=== PATIENT | male | born 1985 | race Caucasian/White ===

== ENCOUNTER 2022-04-17 18:55 | Emergency (ER) | payer OTHER, SELFPAY ==
--- NOTE | 2022-04-17 19:15 | CT_ITS ---
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 3D rendering (Not supervised by radiologist): MIP and/or 3D reconstructed images were created by the technologist. Radiation optimization: All CT scans at this facility use at least one of these dose optimization techniques: automated exposure control; mA and/or kV adjustment per patient size (includes targeted exams where dose is matched to clinical indication); or iterative reconstruction. Contrast material: ISOVUE; Contrast volume: 100 ml; Contrast route: INTRAVENOUS (IV); COMPARISON: No relevant prior studies available. FINDINGS: Tubes, catheters and devices: Surgical clips in the midline consistent with recent surgery Aorta: No aortic aneurysm. No aortic dissection. Celiac trunk and mesenteric arteries: No occlusion or significant stenosis. Renal arteries: No occlusion or significant stenosis. Right iliac arteries: No occlusion or significant stenosis. Left iliac arteries: No occlusion or significant stenosis. Liver: No mass. Gallbladder and bile ducts: Unremarkable. No calcified stones. No ductal dilation. Pancreas: Unremarkable. No mass. No ductal dilation. Spleen: Unremarkable. No splenomegaly. Adrenal glands: Unremarkable. No mass. Kidneys and ureters: Unremarkable. No solid mass. No hydronephrosis. Stomach and bowel: No obstruction. No mucosal thickening. Appendix: No evidence of appendicitis. Intraperitoneal space: Free air in the upper abdomen consistent with recent surgery. 7.5 x 3.3 cm free fluid in the posterior pelvis . Lymph nodes: Unremarkable. No enlarged lymph nodes. Urinary bladder: Unremarkable. No mass. Reproductive: Unremarkable as visualized. Bones/joints: No acute fracture. Soft tissues: Unremarkable. IMPRESSION: No obstruction 7.5 x 3.3 cm free fluid in the posterior pelvis .
--- NOTE | 2022-04-17 19:15 | CT_ITS ---
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 3D rendering (Not supervised by radiologist): MIP and/or 3D reconstructed images were created by the technologist. Radiation optimization: All CT scans at this facility use at least one of these dose optimization techniques: automated exposure control; mA and/or kV adjustment per patient size (includes targeted exams where dose is matched to clinical indication); or iterative reconstruction. Contrast material: ISOVUE; Contrast volume: 75 ml; Contrast route: INTRAVENOUS (IV); COMPARISON: No relevant prior studies available. FINDINGS: Pulmonary arteries: No evidence of pulmonary embolus to the segmental level. Aorta: No aneurysm of the aorta. No dissection of the aorta. Lungs: Unremarkable. No consolidation. No masses. Pleural spaces: Unremarkable. No pneumothorax. No pleural effusion. Heart: Unremarkable. No cardiomegaly. No pericardial effusion. Lymph nodes: Unremarkable. No enlarged lymph nodes. Intraperitoneal space: Free air anterior to the heart. Series 5, image 105 and free air in the upper abdomen consistent with recent surgery.. Bones/joints: Unremarkable. No acute fracture. Soft tissues: Unremarkable. IMPRESSION: 1. No evidence of pulmonary embolus to the segmental level. 2. No aneurysm of the aorta. 3. No dissection of the aorta. 4. Free air anterior to the heart. Series 5, image 105 and free air in the upper abdomen consistent with recent surgery..
[2022-04-17 19:18] VITALS: BP 151/82; PULSE 112; RESP 15; TEMP 37.1; O2SAT 98; BMI 23.7
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
--- NOTE | 2022-04-17 19:35 | PC.NURSE ---
LAB NOTIFIED OF TYPE AND SCREEN
[2022-04-17 19:37] LABS: Coronavirus 19, PCR Not Detected (NotDetected); Influenza A, PCR Not Detected (NotDetected); Influenza B, PCR Not Detected (NotDetected)
[2022-04-17 19:38] LABS: Chloride 106 mmol/L (98-107); Sodium 139 mmol/L (136-145)
[2022-04-17 19:41] LABS: Alanine Aminotransferase 58 U/L (12-78); Alkaline Phosphatase 109 U/L (38-126); Aspartate Amino Transferase 59 U/L (17-59); Bilirubin,Total 0.2 mg/dl (0.2-1.3); Blood Urea Nitrogen 7 mg/dl (9-20); Calcium 8.6 mg/dl (8.4-10.2); Carbon Dioxide 26 mmol/L (22.0-30.0); Creatinine Clearance Estimated 197 mL/min (50-200); Estimated Glomerular Filt Rate 152 ml/min (>60); GFR (African American) 184 ML/MIN (>60); Glucose 113 mg/dl (74-100); Lipase 138 U/L (23-300)
[2022-04-17 19:42] LABS: Albumin/Globulin Ratio 1.3 (1.1-1.8); Globulin 3.1 g/dL (1.3-3.2); Total Protein,Serum 7.1 g/dl (6.3-8.2)
--- NOTE | 2022-04-17 19:55 | PC.NURSE ---
PT GONE TO CT VIA W/C
[2022-04-17 20:03] LABS: Basophils # 0.2 K/mm3 (0-0.2); Basophils % 1.2 % (0.1-2.0); Eosinophils # 0.9 K/mm3 (0.0-0.4); Eosinophils % 5.7 % (0.1-12.0); Hematocrit 28.2 % (42.0-52.0); Hemoglobin 9.1 g/dL (14.1-18.0); Lymphocytes # 3.9 K/mm3 (0.7-4.5); Lymphocytes % 24.3 % (10-50); Mean Corpuscular HGB Conc 32.3 g/dL (31.8-35.4); Mean Corpuscular Hemoglobin 30.3 pg (27.0-31.2); Mean Corpuscular Volume 93.9 fl (80-94); Monocytes % 6.1 % (1.7-9.3); Neutrophils % 62.6 % (37.0-80.0); Red Cell Distribution Width 16.3 % (11.5-17.5)
[2022-04-17 20:08] LABS: Platelet Count 1307 K/mm3 (142-424)
[2022-04-17 20:09] LABS: Lactic Acid 1.4 mmol/L (0.7-2.1)
[2022-04-17 20:12] LABS: Activated Partial Thrombo Time 24.5 seconds (22.8-30.6); INR 0.95 (0.9-1.1); Prothrombin Time 10.3 seconds (10.1-12.5)
[2022-04-17 20:13] LABS: MANUAL DIFFERENTIAL MANUAL DIFFERENTIAL (MANUAL DIFF)
--- NOTE | 2022-04-17 20:17 | PC.NURSE ---
PT BACK FROM CT
[2022-04-17 20:56] LABS: Microscopic, Urine URINE MICROSCOPIC (MICROSCOPIC)
[2022-04-17 21:02] LABS: Appearance,Urine CLEAR (Clear); Bilirubin,Urine Negative (Negative); Blood, Urine Negative (Negative); Color,Urine YELLOW (Yellow); Glucose,Urine (UA) Negative (Negative); Ketones,Urine Negative (Negative); Leukocyte Esterase,Urine Negative (Negative); Nitrate,Urine Negative (Negative); PH,Urine 6.5 (5.0-8.5); Protein,Urine Negative (Negative); Specific Gravity, Urine <= 1.005 (1.005-1.030); Urobilinogen,Urine 0.2 EU/dl (0.2)
[2022-04-17 21:02] LABS: Eosinophils % 5 % (0-3); Lymphocytes % 34 % (10-50); Monocytes % 2 % (2-9); Neutrophils % 59 % (42-76); Total Cells Counted 100
[2022-04-17 21:04] LABS: Poikilocytosis 2+; Target Cells 1+
[2022-04-17 21:05] LABS: Hypochromasia 1+; Platelet Estimate Marked Increase; Rouleaux 1+
[2022-04-17 21:12] LABS: Squamous Epithelial Cell,Urine Occasional #/hpf (0-5)
--- NOTE | 2022-04-17 21:17 | PC.NURSE ---
would like to s/w reading radiologist, calling [facility] [phone]
--- NOTE | 2022-04-17 21:21 | PC.NURSE ---
Dr Donovan s/w Dr Samy Jovel, reading radiologist, regarding CT scans
[2022-04-17 21:30] VITALS: BP 129/71; BP 134/66; BP 138/79
--- NOTE | 2022-04-17 21:32 | PC.NURSE ---
Called [facility] for medical records, sent pt consent for records
--- NOTE | 2022-04-17 21:49 | PC.NURSE ---
Paged Dr. Lange
--- NOTE | 2022-04-17 21:50 | PC.NURSE ---
Dr. Donovan s/w Dr. Lange
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
--- NOTE | 2022-04-17 22:20 | PC.NURSE ---
Dr. Donovan would like to s/w reading radiologist to define the quantity of free air and fluid. Is is small, moderate, or large? . Per Nura @ [facility], Dr. Jovel is off shift, he will send read back out and will have a radiologist call back.
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
[2022-04-17 23:31] VITALS: BP 128/78; PULSE 85; RESP 18; TEMP 36.7; O2SAT 98
[2022-04-19 19:25] LABS: Peripheral Smear Review Scanned Result
== END 2022-04-17 23:56 | disposition home or self-care (01) ==
PROVIDERS: Emergency Medicine; Emergency Provider Emergency Medicine
DX: G89.18 Other acute postprocedural pain (principal); R10.84 Generalized abdominal pain; Z90.81 Acquired absence of spleen; F17.210 Nicotine dependence, cigarettes, uncomplicated
CPT/HCPCS: 71275; 74174; 80053; 81001; 83605; 83690; 85007; 85025; 85610; 85730; 86850; 96361; 96374; 96375; 99285; C9803; J0131; J2405; Q9967; U0003; U0005

== ENCOUNTER 2022-05-04 17:17 | Emergency (ER) | payer OTHER, SELFPAY ==
[2022-05-04 17:19] VITALS: BP 145/72; PULSE 92; RESP 18; TEMP 37.1; O2SAT 100; BMI 21.9
--- NOTE | 2022-05-04 18:14 | EXP.UTC ---
Discharge Plan Disposition Patient Disposition: Home, Self-Care Condition: Good Prescriptions Prescriptions: New amoxicillin-pot clavulanate 875-125 mg Tablet 1 tab PO Q12H Qty: 20 0RF No Action acetaminophen-codeine 300-30 mg tablet 1 tab PO TID PRN ondansetron HCl 4 mg tablet 4 mg PO Q6H PRN (Reason: nausea and vomiting) Qty: 14 0RF hydrocodone-acetaminophen 5-325 mg tablet 1 tab PO QID PRN (Reason: pain) Qty: 10 0RF Referrals Follow up/Referrals: Provider,Referral, MD [Primary Care Provider] - See instructions Activity Restrictions/Add. Instructions Additional Instructions/Restrictions: Use dental balls as advised to help with dental pain Over the counter Motrin and/or Tylenol for pain if your Doctor has said that you can take it Take antibiotics as prescribed Call and make appointment with Dentist as soon as possible Follow up with [facility] tomorrow as scheduled Clinical Impressions Clinical Impression: Dental infection Instructions Patient Instructions: DI for Tooth Abscess, DI for Dental Pain, Amoxicillin and Clavulanic Acid Discharge ED Provider: Judith Banerjee [facility] General Stated complaint: mouth pain and abdominal pain Time Seen by Provider: 05/04/22 18:14 History of Present Illness Provider Complaint: Patient state that he has been having issues with a bad tooth on his left lower gumline States that he recently had surgery on his abdomen and was worried that if his tooth got too infected it may cause him complications so today he came in to get it checked States that he has appointment tomorrow with for follow up on his surgery Related Data Home Medications Medication Instructions Recorded Confirmed acetaminophen 300 mg-codeine 30 mg 1 tab PO TID PRN 04/19/22 04/19/22 tablet Previous Rx's Medication Instructions Recorded ondansetron HCl 4 mg tablet 4 mg PO Q6H PRN nausea and 04/19/22 vomiting #14 tabs hydrocodone 5 mg-acetaminophen 325 1 tab PO QID PRN pain #10 tabs 04/20/22 mg tablet amoxicillin 875 mg-potassium 1 tab PO Q12H #20 tabs 05/04/22 clavulanate 125 mg tablet Allergies Allergy/AdvReac Type Severity Reaction Status Date / Time No Known Allergies Allergy Verified 04/19/22 11:17 PFSH PFSH Disclaimer: The information contained in this section may have been updated after the patient was seen, as this information can be updated by other users. Surgical History History of splenectomy 04/07/2022 Social History Smoking Status: Current every day smoker alcohol intake: never substance use type: former substance user, marijuana and methamphetamine current occupational status: employed Travel in the last 8 weeks: None adopted: No caregiver/support person: Yes household members: family housing: apartment lives independently: Yes marital status: service: No mcfp: No pets and animals: No ROS Obtained: Yes All systems reviewed & no additional complaints except as documented and Yes Systems reviewed as appropriate & no additional complaints except as documented Constitutional Constitutional: Reports system reviewed and no additional complaints, except as documented and Reports as per HPI Eyes Eyes: Reports system reviewed and no additional complaints, except as documented and Reports as per HPI ENT Ears, Nose, Mouth, and Throat: Reports system reviewed and no additional complaints, except as documented, Reports as per HPI and Reports dental pain Cardiovascular Cardiovascular: Reports system reviewed and no additional complaints, except as documented and Reports as per HPI Respiratory Respiratory: Reports system reviewed and no additional complaints, except as documented and Reports as per HPI Gastrointestinal Gastrointestingal: Reports system reviewed and
[2022-05-04 18:33] VITALS: BP 145/72; PULSE 92; RESP 18; TEMP 37.1; O2SAT 100
== END 2022-05-04 18:37 | disposition home or self-care (01) ==
PROVIDERS: Emergency Provider Nurse Practitioner
DX: K04.7 Periapical abscess without sinus (principal)
CPT/HCPCS: 99212; 99213; G0463

== ENCOUNTER 2022-05-12 18:01 | Emergency (ER) | payer OTHER, SELFPAY ==
[2022-05-12 18:20] VITALS: BP 141/89; PULSE 89; RESP 19; TEMP 37.1; O2SAT 98; BMI 23.5
--- NOTE | 2022-05-12 18:37 | EXP.UTC ---
Discharge Plan Disposition Patient Disposition: Home, Self-Care Condition: Good Prescriptions Prescriptions: New prednisone 20 mg tablet 20 mg PO BID 5 Days Qty: 10 0RF guaifenesin [Mucinex] 600 mg tablet extended release 12hr 600 - 1,200 mg PO BID PRN (Reason: cough/congestion) Qty: 20 0RF No Action acetaminophen-codeine 300-30 mg tablet 1 tab PO TID PRN ondansetron HCl 4 mg tablet 4 mg PO Q6H PRN (Reason: nausea and vomiting) Qty: 14 0RF hydrocodone-acetaminophen 5-325 mg tablet 1 tab PO QID PRN (Reason: pain) Qty: 10 0RF amoxicillin-pot clavulanate 875-125 mg Tablet 1 tab PO Q12H Qty: 20 0RF Referrals Follow up/Referrals: Provider,Referral, MD [Primary Care Provider] - See instructions Activity Restrictions/Add. Instructions Additional Instructions/Restrictions: group director your prescription for Augmentin that is at [facility] along with your other medications Follow up with your Family Doctor if no improvement or any worsening of symptoms Return if needed Straight to ER if any life threatening symptoms Clinical Impressions Clinical Impression: Bronchitis Instructions Patient Instructions: Acute Bronchitis, DI for Sinusitis, Cough Discharge ED Provider: Judith Banerjee [facility] HPI General Stated complaint: cough,runny nose Time Seen by Provider: 05/12/22 18:39 History of Present Illness Provider Complaint: Patient states he has been having cough, chest congestion, sinus congestion and hoarseness States that at times he is coughing up mucous at times States that he was given prescription about a week ago for dental infection but he found some old medication and took it for that and never picked up his antibiotic States that dental infection is better but now feels like he is getting bronchitis Related Data Home Medications Medication Instructions Recorded Confirmed acetaminophen 300 mg-codeine 30 mg 1 tab PO TID PRN 04/19/22 04/19/22 tablet Previous Rx's Medication Instructions Recorded ondansetron HCl 4 mg tablet 4 mg PO Q6H PRN nausea and 04/19/22 vomiting #14 tabs hydrocodone 5 mg-acetaminophen 325 1 tab PO QID PRN pain #10 tabs 04/20/22 mg tablet amoxicillin 875 mg-potassium 1 tab PO Q12H #20 tabs 05/04/22 clavulanate 125 mg tablet guaifenesin 600 mg tablet, 600 - 1,200 mg PO BID PRN 05/12/22 extended release 12 hr (Mucinex) cough/congestion #20 tabs prednisone 20 mg tablet 20 mg PO BID 5 days #10 tabs 05/12/22 Allergies Allergy/AdvReac Type Severity Reaction Status Date / Time No Known Allergies Allergy Verified 04/19/22 11:17 [facility] Disclaimer: The information contained in this section may have been updated after the patient was seen, as this information can be updated by other users. Surgical History History of splenectomy 04/07/2022 Social History Smoking Status: Current every day smoker alcohol intake: never substance use type: former substance user, marijuana and methamphetamine current occupational status: employed Travel in the last 8 weeks: None adopted: No caregiver/support person: Yes household members: family housing: apartment lives independently: Yes marital status: service: No shelter: No pets and animals: No ROS Obtained: Yes All systems reviewed & no additional complaints except as documented and Yes Systems reviewed as appropriate & no additional complaints except as documented Constitutional Constitutional: Reports system reviewed and no additional complaints, except as documented and Reports as per HPI ENT Ears, Nose, Mouth, and Throat: Reports system reviewed and no additional complaints, except as documented, Reports as per HPI, Reports nasal congestion, Reports sinus pressure and Reports sore throat Respiratory Respiratory: Reports system r
[2022-05-12 18:56] VITALS: BP 141/89; PULSE 89; RESP 19; TEMP 37.1; O2SAT 98
== END 2022-05-12 18:58 | disposition home or self-care (01) ==
PROVIDERS: Emergency Provider Nurse Practitioner
DX: J40 Bronchitis, not specified as acute or chronic (principal)
CPT/HCPCS: 99212; 99213; G0463